=== PATIENT | female | born 1970 | race Caucasian/White ===

== ENCOUNTER 2023-02-12 07:12 | Outpatient (OUT) | payer BC, SELFPAY ==
[2023-02-12 07:58] LABS: Chol HDL Ratio 3.7; Cholesterol 228 mg/dL (<=200); Glucose 95 mg/dL (74-106); HDL Cholesterol 61 mg/dL (40-60); Triglycerides 149 mg/dL (<=150); VLDL CHOLESTEROL 29.8 mg/dL
== END 2023-02-12 07:13 | disposition home or self-care (01) ==
LOC: LAB 07:17
PROVIDERS: PCP Family Medicine; Visit Provider Family Medicine
DX: Z00.00 Encounter for general adult medical examination without abnormal findings (principal)
CPT/HCPCS: 36415; 80061; 82947

== ENCOUNTER 2023-03-12 14:08 | Outpatient (OUT) | payer BC, SELFPAY ==
--- NOTE | 2023-03-12 14:08 | MM_ITS ---
Patient Name: JULIETTE LEONARDO MR#: [id number] : 1970 Exam Date: 03/12/2023 Ordering Doctor: DR Kaylyn Loomis M.D. RADIOLOGY REPORT PROCEDURE: MM TOMOSYNTHESIS SCREENING BI COMPARISON: MG MAMM SCREEN CLAUDY W CAD, 05/29/2020. MG MAMM SCREEN CLAUDY W CAD, 05/15/2018. INDICATIONS: screening Calculator Name NCI Breast Cancer Risk Assessment Tool 5 Year Breast Cancer Risk 0.90% Lifetime Breast Cancer Risk 7.90% Personal Breast Cancer No Personal Ovarian Cancer No Treatments None Family Cancers Grandfather-maternal with colon cancer at age 75. LOCATION: [facility] BREAST COMPOSITION: Extremely dense, which lowers the sensitivity of mammography. FINDINGS: DIAGNOSTIC CATEGORY 1--NEGATIVE. RIGHT BREAST: No significant suspicious finding. No significant change has occurred. LEFT BREAST: No significant suspicious finding. No significant change has occurred. RECOMMENDATIONS: ROUTINE MAMMOGRAM AND CLINICAL EVALUATION IN 12 MONTHS. PLEASE NOTE: A NORMAL MAMMOGRAM DOES NOT EXCLUDE THE POSSIBILITY OF BREAST CANCER. A CLINICALLY SUSPICIOUS PALPABLE LUMP SHOULD BE BIOPSIED. Dictated by: Lester Moseley M.D. on 03/13/2023 at 12:05 Approved by: Lester Moseley M.D. on 03/13/2023 at 12:07
== END 2023-03-12 14:09 | disposition home or self-care (01) ==
LOC: MAMMO 14:08
PROVIDERS: PCP Family Medicine; Visit Provider Family Medicine
DX: Z12.31 Encounter for screening mammogram for malignant neoplasm of breast (principal); Z80.0 Family history of malignant neoplasm of digestive organs
CPT/HCPCS: 77063; 77067

== ENCOUNTER 2024-02-04 06:51 | Outpatient (OUT) | payer BC, SELFPAY ==
--- OUTSIDE RECORDS SUMMARY | 2024-02-04 06:55 | XMS_ITS | CCD ---
Author Organization [facility] Care Team Providers Care Accounts Receivable Executive Name Role Phone DR KAYLYN LOOMIS Attending Unavailable DR KAYLYN LOOMIS Consulting Unavailable DR KAYLYN LOOMIS Primary Care Unavailable DR KAYLYN LOOMIS Admitting Unavailable Kaylyn Loomis Allergies Allergy Classification Reported Allergen(s) Allergy Type Date of Onset Reaction(s) Facility (1 source) natural latex rubber Drug allergy (disorder) [facility] Rep[facility] (1 source) Tetracycline Drug Allergy [facility] (1 source) Latex Drug allergy 03-24-19 LATEX [facility] [employer] Other (2 sources) Tetracycline Drug Allergy 03-24-19 TETRACYCLINE Comment:hives, Unknown [facility] Other (1 source) Allergies Reconciled Propensity to adverse reactions Unknown [facility] Other (1 source) patient allergy list reviewed by nurse or physicia Propensity to adverse reactions 08-17-19 Comment:Done [facility] Other Medications Current Medications Medication Drug Class(es) Dates Sig (Normalized) Sig (Original) calcium, black currand seed oil (1 source) Start: 02-16-2021 calcium, black currand seed oil calcium, black currand seed oil( daily ) Active -Hx Entry daily for 0 *Reorder from [employer] for eRx and Interaction Alerts* Jan, Active Fish Oils (1 source) Start: 02-16-2021 take 300 mg by mouth once daily Fish Oil 300MG Fish Oil( 300MG Oral daily ) Active -Hx Entry Oral daily for 0 *Pick strength-form from [employer] for eRX* Jan, Active MULTI VITAMIN - this medication is not being screened (1 source) Start: 12-04-2006 MULTI VITAMIN - this medication is not being screened MULTI VITAMIN - this medication is not being screened( ) Active -Hx Entry for 0 *Reorder from [employer] for eRx and Interaction Alerts* Nov, Active Problems Active Problems Problem Classification Problem Date Documented Da te Episodic/Chronic Abdominal pain (2 sources) Abdominal pain; Translations: [Unspecified abdominal pain] Episodic Anal and rectal conditions (1 source) Anorectal disorder; Translations: [Other specified diseases of anus and rectum] Episodic Immunizations and screening for infectious disease (1 source) Vaccination given; Translations: [Encounter for immunization] Episodic Menstrual disorders (1 source) Excessive and frequent menstruation; Translations: [Excessive and frequent menstruation with regular cycle] Chronic Other aftercare (1 source) History and physical examination, follow-up; Translations: [Encounter for follow-up examination after completed treatment for conditions other than malignant neoplasm] Episodic Other circulatory disease (1 source) Elevated blood-pressure reading without diagnosis of hypertension; Translations: [Elevated blood-pressure reading, without diagnosis of hypertension] Episodic Other female genital disorders (1 source) Dyspareunia; Translations: [Unspecified dyspareunia] Chronic Other female genital disorders (1 source) Hypertrophy of uterus; Translations: [Hypertrophy of uterus] Episodic Other gastrointestinal disorders (1 source) Flatulence, eructation and gas pain; Translations: [Abdominal distension (gaseous)] Episodic Other nutritional; endocrine; and metabolic disorders (1 source) Body mass index 30+ - obesity; Translations: [Body mass index 36.0-36.9, adult] Onset: 03-13-2017 Chronic Other nutritional; endocrine; and metabolic disorders (2 sources) Obese class I; Translations: [Body mass index (BMI) 33.0-33.9, adult] Chronic Other nutritional; endocrine; and metabolic disorders (1 source) Obesity; Translations: [Obesity, unspecified] Chronic Other nutritional; endocrine; and metabolic disorders (1 source) Obese class II; Translations: [Body mass index 35.0-35.9, adult] Onset: 03-13-2017 Chronic Other nutritional; endocrine; and metabolic disorders (1 source) Abnormal weight gain; Translations: [Abnormal weight gain] Episodic Other screening for suspected conditions (not mental disorders or infectious disease) (1 source) Imaging result abnormal; Translations: [Abnormal findings on diagnostic imaging of other specified body structures] Chronic Other screening for suspected conditions (not mental disorders or infectious disease) (1 source) Encounter for screening mammogram for malignant neoplasm of breast Episodic Residual codes; unclassified (1 source) Acquired absence of genital organ; Translations: [Acquired absence of other genital organ(s)] Episodic Residual codes; unclassified (1 source) History of uterine scar from previous surgery; Translations: [History of uterine scar from previous surgery] Episodic Past or Other Problems Problem Classification Problem Date Documented Da te Episodic/Chronic Deficiency and other anemia (1 source) Anemia; Translations: [Anemia, unspecified] Resolved: 02-16-2021 Episodic Mycoses (1 source) Candidiasis; Translations: [Candidiasis, unspecified] Resolved: 06-12-2018 Episodic Other ear and sense organ disorders (1 source) Impacted cerumen; Translations: [Impacted cerumen] Onset: 03-06-2018 Episodic Other skin disorders (1 source) Acne vulgaris; Translations: [Acne vulgaris] Onset: 03-06-2018 Episodic Other upper respiratory infections (1 source) Acute maxillary sinusitis; Translations: [Acute recurrent maxillary sinusitis] Onset: 08-16-2016 Episodic Results Test Name Value Interpretation Reference Range Facil ity LIPID PROFILEon 03-05-2022 CHOL-HDL RATIO NORM SEE BELOW Normal [facility] Comment on above: Result Comment: 3.3 - 4.4 LOW RISK 4.4 - 7.1 AVERAGE RISK 7.1 - 11.0 MODERATE RISK >11.0 HIGH RISK Performed By: #### L IPID, BMP #### [facility] [address] [address] [address] Emory Jackson Cholesterol [Mass/Vol] 224 mg/dL Critically high <=200 [facility] Comment on above: Performed By: #### L IPID, BMP #### [facility] [address], [place] [address] Dr. Emory Jackson Cholesterol in HDL [Mass/Vol] 69 mg/dL Critically high 40-60 [facility] Comment on above: Performed By: #### L IPID, BMP #### [facility] [address], [place] [address] Dr. Emory Jackson Cholesterol in LDL [Mass/Vol] 120.6 mg/dL Normal [facility] Comment on above: Performed By: #### L IPID, BMP #### [facility] [address] [address] [address] Emory Jackson Cholesterol.total/C holesterol in HDL [Mass ratio] 3.2 {ratio} Normal [facility] Comment on above: Performed By: #### L IPID, BMP #### [facility] [address] [address] [address] Emory Jackson HDL NORMAL > or = 60 mg/dl - LO W CARDIOVASCULAR RISK <40 mg/dl - HIGH CARDIOVASCULAR RISK Normal [facility] Comment on above: Performed By: #### L IPID, BMP #### [facility] [address] [place] [address] Dr. Emory Jackson LDL CALC NORMAL SEE BELOW Normal [facility] Comment on above: Result Comment: <100 mg/dl OPTIMAL 100 - 129 mg/dl NEAR OR ABOVE OPTIMAL 130 - 159 mg/dl BORDERLINE HIGH 160 - 189 mg/dl HIGH >190 mg/dl VERY HIGH Performed By: #### L IPID, BMP #### [facility] [address] [place] [address] Dr. Emory Jackson Triglyceride [Mass/Vol] 172 mg/dL Critically high <=150 [facility] Comment on above: Performed By: #### L IPID, BMP #### [facility] [address] [place] [address] Dr. Emory Jackson VLDL CALC 34.4 mg/dL Normal [facility] Comment on above: Performed By: #### L IPID, BMP #### [facility] [address] [place] [address] Dr. Emory Jackson PROF CHEM 8 (BAS METB)on Anion gap [Moles/Vol] 9.7 mmol/L Normal [facility] Comment on above: Performed By: #### L IPID, BMP #### [facility] [address] [place] [address] Dr. Emory Jackson Calcium [Mass/Vol] 9.1 mg/dL Normal 8.5-10.1 [facility] Comment on above: Performed By: #### L IPID, BMP #### [facility] [address] [address] [address] Emory Jackson Chloride [Moles/Vol] 102 mmol/L Normal 98-107 [facility] Comment on above: Performed By: #### L IPID, BMP #### [facility] [address] [address] [address] Emory Jackson CO2 [Moles/Vol] 31.5 mmol/L Normal 21.0-32.0 [facility] Comment on above: Performed By: #### L IPID, BMP #### [facility] [address] [address] [address] Emory Jackson Creatinine [Mass/Vol] 0.75 mg/dL Normal 0.55-1.02 [facility] Comment on above: Performed By: #### L IPID, BMP #### [facility] [address] [address] [address] Emory Jackson EGFR-AF RUSSIAN >60 Normal >=60 [facility] Comment on above: Performed By: #### L IPID, BMP #### [facility] [address] [address] [address] Emory Jackson EGFR-NON AF RUSSIAN >60 Normal >=60 [facility] Comment on above: Performed By: #### L IPID, BMP #### [facility] [address] [address] [address] Emory Jackson Glucose [Mass/Vol] 96 mg/dL Normal 74-106 [facility] Comment on above: Performed By: #### L IPID, BMP #### [facility] [address] [address] [address] Emory Jackson Potassium [Moles/Vol] 4.2 mmol/L Normal 3.5-5.1 [facility] Comment on above: Performed By: #### L IPID, BMP #### [facility] [address] [address] [address] Emory Jackson Sodium [Moles/Vol] 139 mmol/L Normal 136-145 [facility] Comment on above: Performed By: #### L IPID, BMP #### [facility] [address], [place] [address] Dr. Emory Jackson Urea nitrogen [Mass/Vol] 7.0 mg/dL Normal 7.0-18.0 [facility] Comment on above: Performed By: #### L IPID, BMP #### [facility] [address], [place] [address] Dr. Emory Jackson Urea nitrogen/Creatinine [Mass ratio] 9.3 mg/mg Normal [facility] Comment on above: Performed By: #### L IPID, BMP #### [facility] [address] [address] [address] Emory Jackson Vital Signs Date Time Vital Sign Value Performing Clinician Facility 02-17-2023 14:30-0500 Body height 160.02 cm Kaylyn Loomis Other [facility] Other 02-17-2023 14:30-0500 Body mass index (BMI) [Ratio] 34.86 kg/m2 Kaylyn Loomis Other [facility] Other 02-17-2023 14:30-0500 Body weight 89.27 kg Kaylyn Loomis Other [facility] Other 02-17-2023 14:30-0500 Diastolic blood pressure 80 mm[Hg] Kaylyn Loomis Other [facility] Other 02-17-2023 14:30-0500 Systolic blood pressure 130 mm[Hg] Kaylyn Loomis Other [facility] Other Encounters Encounter Date Encounter Type Care Provider Facility Start: 02-17-2023 End: 02-17-2023 ambulatory Kaylyn Loomis Other [facility] Other Start: 02-17-2023 Encounter for genera l adult medical examination without abnormal findings Kaylyn Loomis [facility] Start: 02-17-2023 Periodic preventive med est patient 40-64yrs Kaylyn Vladislav [facility] Start: 03-09-2022 Encounter for genera l adult medical examination without abnormal findings DR KAYLYN LOOMIS [facility] Start: 03-06-2022 Adult health examination Linaanyn Loomis Other [facility] Other Start: 03-05-2022 End: 03-06-[address] KAYLYN LOOMIS Facility:[facility] Start: 03-05-2022 End: 03-06-2022 Encounter for general adult medical examination without abnormal findings DR KAYLYN LOOMIS Facility:[facility] Start: 03-31-2020 Gynecological examin ation normal Kaylyn Loomis Other [facility] Other Start: 03-31-2020 Pre-procedure evalua tion check Kaylyn Vladislav Other [facility] Other Procedures Date Procedure Procedure Detail Performing Clinician Start: 03-20-2018 Screening mammography Jaspal Loomis Other Start: 10-10-2015 General examination of patient Kaylyn Loomis Other Depression screening Kaylyn Vladislav Other Hysterectomy Kaylyn Loomis Other Ligation of fallopian tube Jaspal Loomis Other Screening for malign ant neoplasm of breast Kaylyn Loomis Other Screening for malign ant neoplasm of colon Kaylyn Loomis Other Immunizations Immunization Date Immunization Notes Care Provider Fa [facility] 02-16-2021 influenza virus vaccine, split virus (incl. purified surface antigen) Kaylyn Vladislav Other [facility] Other Payers Date Payer Category Payer Unknown [id number] 1958 Unknown [id number] Social History Date Type Detail Facility Unknown if ever smoked [facility] Other Sex Assigned At Sex Assigned At Bir th [facility] Other Evaluation note 02-17-2023 Note Date & Type Note Facility 02-17-2023 Evaluation note Encounter Date Diagnosis Assessment Notes Jan, Well adult exam (ICD-10 - Z00.00) We have discussed the necessity of following up with PCP regularly as well as specialists, as needed. Discussed F/U with dentistry and optometry at least yearly. Discussed all preventative measures/ cancer screenings as applicable to this patient. Emphasized the importance of a reduced fat, low carb diet to promote heart health and controlled blood sugars. Reviewed social history and ensured patient is safe within the home today. Pt denies any abuse of alcohol, nicotine, caffeine or recreational drugs. I have ensured patient is of stable mental and physical health today. We have discussed appropriate F/U schedule as well as blood work and vaccinations that apply. All questions answered and patient is sent home pleased, without concerns. Jan, Encounter for screening mammogram for malignant neoplasm of breast (ICD-10 - Z12.31) [facility] Other History general Narrative - Reported Note Date & Type Note Facility History general Narrative - Reported Type Medical History Problem Title : comp liance with medical treatment, Problem Description : compliance with medical treatment, Problem Comment : Done, Problem Status : Active,, Medical History Problem Title : Depr ession Screening, Problem Description : Depression Screening, Problem Comment : Negative, Problem Status : Active,, Medical History Problem Title : MEDI JORDIN: No history of significant medical diseases, Problem Status : Resolved,, Medical History Problem Title : No h istory of receiving blood or blood product transfusion(s), Problem Status : Active,, Medical History Problem Title : No h istory of significant medical diseases, Problem Status : Active,, Medical History Problem Title : no k nown problems, Problem Description : no known problems, Problem Comment : F, Problem Status : Active,, Medical History Problem Title : Non- Contributory Problem List/Past Medical History, Problem Status : Active,, Medical History Problem Title : past medical history E&M, Problem Description : past medical history E&M, Problem Comment : Herniated disc/ back pain, Problem Status : Active,, Medical History Problem Title : past medical history reviewed, Problem Description : past medical history reviewed, Problem Comment : reviewed - no changes required, Problem Status : Active,, Medical History Problem Title : PHQ2 Questionairre Score, Problem Description : PHQ2 Questionairre Score, Problem Comment : 0, Problem Status : Active,, Medical History Problem Title : PHQ9 Question One score, Problem Description : PHQ9 Question One score, Problem Comment : 0, Problem Status : Active,, Medical History Problem Title : PHQ9 Question Two score, Problem Description : PHQ9 Question Two score, Problem Comment : 0, Problem Status : Active,, Medical History Problem Title : Prob lems Reconciled, Problem Status : Active,, Medical History Problem Title : She has not had a rash or viral illness since her last menstrual period, Problem Status : Active,, Medical History Problem Title : The patient has not been exposed to AIDS, HIV, hepatitis, TB, influenza, MMR, DPT, polio or tetanus. There have been no recent rashes or viral illnesses, Problem Status : Active,, Medical History Problem Title : The patient has not been exposed to non-STD infections, Problem Status : Active,, Medical History Problem Title : SOUZA SFUSION HISTORY: No history of receiving blood or blood product transfusion(s), Problem Status : Resolved,, Medical History Problem Title : very low density lipoproteins, Problem Description : very low density lipoproteins, Problem Comment : 23.8, Problem Status : Active,, Surgical History Problem Title : Cesa rean Section - 2, Problem Comment : 2003, Problem Status : Active, Surgical History Problem Title : Dila tion and Curettage of Uterus, Problem Status : Active, Surgical History Problem Title : Hyst erectomy; Total, Problem Status : Active, Surgical History Problem Title : Lami nectomy, Problem Status : Active, Surgical History Problem Title : past surgical history reviewed, Problem Description : past surgical history reviewed, Problem Comment : reviewed - no changes required, Problem Status : Inactive, Surgical History Problem Title : repa ir incisional ventral hernia w mesh - Dr. Bauer, Problem Status : Active, Surgical History Problem Title : Salp ingectomy; Bilateral, Problem Status : Active, Surgical History Problem Title : surg ical procedures, hx of, Problem Description : surgical procedures, hx of, Problem Comment : BTL Hysterectomy (ovaries remain) 09/2018, Problem Status : Inactive, Surgical History Problem Title : surg ical procedures, hx of, Problem Description : surgical procedures, hx of, Problem Comment : BTL, Problem Status : Active, Surgical History Problem Title : Tuba l Ligation, Problem Status : Active, Hospitalization History see above [facility] Other Summary Purpose Family History No Family History Records Found Advance Directives No Advanced Directives Records Found Additional Source Comments INFORMATION SOURCE (unrecogn ized section and content) DATE CREATED AUTHOR 03/15/2022 [facility] REASON FOR VISIT (unrecogniz ed section and content) [facility] FOR RECORDS PERTAINING TO PATIENTS WHO ARE OR HAVE BEEN ENROLLED IN A CHEMICAL DEPENDENCY/SUBSTANCEABUSE PROGRAM, SOME INFORMATION MAY BE OMITTED. This clinical summary was aggregated from multiple sources. Caution should be exercised in using it in the provision of clinical care. This summary normalizes information from multiple sources, and as a consequence, information in this document may materially change the coding, format and clinical context of patient data. In addition, data may be omitted in some cases. CLINICAL DECISIONS SHOULD BE BASED ON THE PRIMARY CLINICAL RECORDS. [facility]. provides no warranty or guarantee of the accuracy or completeness of information in this document.
[2024-02-04 07:32] LABS: Basophils Percent Auto 0.6 % (0.2-2.0); Eosinophils Absolute Auto 0.2 10^3/uL (0.0-0.7); Eosinophils Percent Auto 4.8 % (0.9-7.0); Hematocrit 36.9 % (36.0-48.0); Hemoglobin 11.9 g/dL (12.0-16.0); Immature Granulocytes Abs Auto 0.01 10^3/uL (0.00-0.03); Immature Granulocytes Pct Auto 0.2 % (0.0-0.5); Lymphocytes Absolute Auto 1.2 10^3/uL (1.2-3.8); Lymphocytes Percent Auto 24.6 % (20.5-60.0); Mean Corpuscular HGB Conc 32.2 g/dL (29.9-35.2); Mean Corpuscular Hemoglobin 27.8 pg (26.7-34.0); Mean Corpuscular Volume 86.2 fL (81.0-99.0); Mean Platelet Volume 10.4 fL (9.5-13.5); Monocytes Absolute Auto 0.3 10^3/uL (0.3-0.8); Monocytes Percent Auto 6.4 % (1.7-12.0); Neutrophils Absolute Auto 3.1 10^3/uL (1.4-6.5); Neutrophils Percent Auto 63.4 % (43.0-75.0); Platelet Count 246 10^3/uL (150-450); Red Blood Count 4.28 10^6/uL (4.20-5.40); Red Cell Distribution Width 12.7 % (11.0-15.0); White Blood Count 4.8 10^3/uL (4.0-11.0)
[2024-02-04 08:10] LABS: Anion Gap 15.9; BUN Creatinine Ratio 12.2; Calcium 8.8 mg/dL (8.5-10.1); Carbon Dioxide 26.1 mmol/L (21.0-32.0); Chloride 105 mmol/L (98-107); Chol HDL Ratio 3.3; Cholesterol 198 mg/dL (<=200); Estimated GFR (African America >60 (>=60 mL/min/1.73m^2); Estimated GFR (Non-African Ame >60 (>=60 mL/min/1.73m^2); Glucose 90 mg/dL (74-106); HDL Cholesterol 60 mg/dL (40-60); LDL Cholesterol Calculated 110.4 mg/dL; Sodium 143 mmol/L (136-145); Triglycerides 138 mg/dL (<=150); VLDL CHOLESTEROL 27.6 mg/dL
[2024-02-04 08:34] LABS: Estimated Average Glucose 114 mg/dL; Glycohemoglobin A1C 5.6 % (4.5-6.2)
== END 2024-02-04 06:52 | disposition home or self-care (01) ==
LOC: LAB 06:53
PROVIDERS: PCP Family Medicine; Visit Provider Family Medicine
DX: Z00.00 Encounter for general adult medical examination without abnormal findings (principal)
CPT/HCPCS: 36415; 80048; 80061; 83036; 85025